=== PATIENT | male | born 2000 | race Caucasian/White ===

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

== ENCOUNTER 2020-04-05 21:34 | Emergency (ER) | payer OTHER ==
[~2020-04-05] VITALS: Ht 188 cm; Wt 73.5 kg
[~2020-04-05 21:34] MED LIST: AMOXICILLIN875 MG PO
[2020-04-05 23:37] LABS: EOS % 0.4 % (0.0-4.0); HEMATOCRIT 43.5 % (36.0-47.0); HEMOGLOBIN 14.9 g/dL (12.5-16.1); LYMPH# 1.3 (1.50-4.00); MEAN CELL VOLUME 82 fl (78-95); MEAN CORPUSCULAR HEMOGLOBIN 28 pg (26-32); MEAN CORPUSCULAR HGB CONC 34 g/dL (33-37); MEAN PLATELET VOLUME 8.4 fl (7.4-10.4); MONO # 0.7 (0.20-0.80); NEU # 8.1 (1.40-6.50); PLATELET COUNT 393 K/mm3 (130-400); RED BLOOD COUNT 5.29 M/mm3 (4.20-5.60); RED CELL DISTRIBUTION WIDTH 12.2 % (11.5-14.5); WHITE BLOOD COUNT 10.2 K/mm3 (4.8-10.8)
[2020-04-05 23:45] LABS: ALBUMIN 4.8 g/dL (3.5-5.0); POTASSIUM 4.3 mmol/L (3.5-5.1); SODIUM 140 mmol/L (136-145)
[2020-04-05 23:46] LABS: CALCIUM 10.1 mg/dL (8.3-10.5)
[2020-04-05 23:47] LABS: GLUCOSE 103 mg/dL (75-110)
[2020-04-05 23:48] LABS: CARBON DIOXIDE 25 mmol/L (22-29); TOTAL PROTEIN 8.5 g/dL (6.4-8.3)
[2020-04-05 23:49] LABS: TOTAL BILIRUBIN 0.5 mg/dL (0.2-1.2)
[2020-04-05 23:51] LABS: ALCOHOL IN-HOUSE < 10 mg/dL (<10)
[2020-04-05 23:53] LABS: AST-SGOT 14 U/L (5-34)
[2020-04-05 23:54] LABS: ALT/SGPT 19 U/L (0-55)
[2020-04-06 00:23] LABS: ACETAMINOPHEN < 1 ug/mL
[2020-04-06 03:44] VITALS: BP 124/80
== END 2020-04-06 03:40 | disposition home or self-care (01) ==
LOC: ED 21:34
PROVIDERS: Family Medicine
DX: R45.851 Suicidal ideations (principal); F32.9 Major depressive disorder, single episode, unspecified; F17.290 Nicotine dependence, other tobacco product, uncomplicated